=== PATIENT | female | born 1990 | race Caucasian/White ===

== ENCOUNTER 2016-04-30 23:51 | Emergency (ER) | payer OTHER ==
--- NOTE | 2016-05-01 01:07 | ERNOTE ---
Abdominal HPI - Narrative Date of Service: 05/01/16 - General Chief Complaint: Abdominal Pain Time Seen by Provider: 05/01/16 01:06 Source: patient Exam Limitations: no limitations - Immun/Allergies/Home Medications Immunizatons: IMMUNIZATION HX Immunizations Up to Date Yes History of Influenza Vaccine Yes Hx Pneumococcal Vaccination No Allergies/Adverse Reactions: Allergies No Known Allergies Allergy (Verified 10/16/15 19:03) Home Medications: HOME MEDICATIONS Naproxen [Naprosyn] 500 mg PO BID PRN #20 tablet 05/01/16 [Last Taken Unknown] - History of Present Illness Narrative: Yesterday Tran noticed the onset of right periumbilical pain, that is worse when she is sits up. The pain is sharp,does not radiate and is well localized. There has not been any N/V/D, fevers, chills, rashes, or vaginal discharge. Denies any pushing, pulling or other physical activity out of the ordinary. She has tried OTC medication for the pain without relief. Timing: intermittent Quality: moderate Activities at Onset: none Modifying Factors - (Improves): Present: lying down Modifying Factors - (Worsens): Present: sitting up, movement Associated Symptoms: Present: denies symptoms Prior Abdominal Problems: Present: none Review of Systems - Review of Systems Constitutional: Present: no symptoms reported EYE: Present: no symptoms reported ENT: Present: no symptoms reported Respiratory: Present: no symptoms reported Cardiology: Present: no symptoms reported Gastrointestinal/Abdominal: Present: See HPI Genitourinary: Present: no symptoms reported Musculoskeletal: Present: no symptoms reported Skin: Present: no symptoms reported Neurological: Present: no symptoms reported Endocrine: Present: no symptoms reported Hematologic/Lymphatic: Present: no symptoms reported Psych: Present: no symptoms reported - Patient's Past Medical History Patient History - Medical: Other Patient History - Cardiac/Respiratory: Other Patient History - Cancer: No Hx of Cancer Patient History - Surgical Procedures: Cholecystectomy, Ear Tubes, T & A Patient History - Other: None - Social History Living Situations: significant other Abuse History: No History of abuse Psych History: No pertinent hx Smoking Status: Never smoker Alcohol Use: rarely Drug Use: none - Immunizations Immunizations Up to Date: Yes Hx Pneumococcal Vaccination: No History of Influenza Vaccine: Yes Physical Exam - Physical Exam Narrative: morbidly obese General Appearance: Present: no apparent distress Eye Exam: Normal inspection: bilateral Ears, Nose, Throat: Present: normal ENT inspection Neck: Present: normal inspection Respiratory: Present: no respiratory distress Cardiovascular/Chest: Present: regular rate, rhythm Gastrointestinal/Abdominal: Present: other - point tenderness at ther right of the navel, where there may be a hernia in the abdominal wall. 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 Vital Signs: Vital Signs 05/01/16 00:42 Temperature 36.7 C Pulse Rate 81 Respiratory 16 Rate Blood Pressure 127/81 O2 Sat by Pulse 100 Oximetry - Progress/Reassessment Chief Complaint: Abdominal Pain Progress:: Unchanged Departure - Departure Clinical Impression: Abdominal wall pain Disposition: Against medical advice Condition: Good Instructions: Abdominal Pain, Adult, [id number] Print Language: [place] Additional Instructions: If the pain continues follow up with the surgeon. Referrals: Josh Putnam MD [Staff Physician] - Prescriptions: Naproxen [Naprosyn] 500 mg PO BID PRN #20 tablet PRN Reason: Pain
[2016-05-01 01:24] LABS: Urine Bilirubin Negative (NEGATIVE); Urine Blood Negative /ul (NEGATIVE); Urine Ketone Negative (NEGATIVE); Urine Nitrite Negative (NEGATIVE); Urine Protein Negative (NEGATIVE); Urine Specific Gravity >=1.030 SP.GR. (1.005-1.010); Urine Urobilinogen Normal (NORMAL)
[2016-05-01 01:29] LABS: Urine Amorphous Sediment Few - 1+ (NONE-FEW); Urine Appearance Slightly Cloudy; Urine Bacteria None Seen; Urine Color Yellow; Urine Mucus Few - 1+; Urine RBC 0-5 /hpf (0-5); Urine WBC 0-5 /hpf (0-5)
[2016-05-01 03:01] VITALS: BP 134/89
== END 2016-05-01 02:30 | disposition left against medical advice (07) ==
LOC: ER 23:51
DX: R10.9 Unspecified abdominal pain (principal); Z90.49 Acquired absence of other specified parts of digestive tract; E66.01 Morbid (severe) obesity due to excess calories

== ENCOUNTER 2016-12-28 18:43 | Emergency (ER) | payer SELFPAY ==
[2016-12-28 18:53] VITALS: BP 142/92
[2016-12-28] MEDS ORDERED: ONDANSETRON 4 MG TAB.RAPDIS PO ONE (19:04)
[2016-12-28] MEDS ORDERED: KETOROLAC TROMETHAMINE 60 MG/2 ML VIAL IM ONE ×2 (19:04→19:27)
--- NOTE | 2016-12-28 19:07 | ERNOTE ---
ER Female HPI Date of Service: 12/28/16 Stated Complaint: URINARY PROBLEM Presenting Symptoms: dysuria, other - R flank pain Time Seen by Provider: 12/28/16 18:55 Source: patient Exam Limitations: no limitations Immunizations: IMMUNIZATION HX Immunizations Up to Date Yes History of Influenza Vaccine No Hx Pneumococcal Vaccination No Allergies/Adverse Reactions: Allergies No Known Allergies Allergy (Verified 12/28/16 18:53) Home Medications: HOME MEDICATIONS Naproxen [Naprosyn] 500 mg PO BID PRN #60 tab 12/28/16 [Last Taken Unknown] Sulfamethoxazole/Trimethoprim [Bactrim Ds] 1 tab PO BID #28 tab 12/28/16 [Last Taken Unknown] - History of Present Illness Narrative: Pt. comes in with c/o R flank pain with nausea and vomiting for 24 hours. Pt. states that her symptoms are accompanied by dysuria, frequency, and urgency, but denies any fever, SOB, CP, diarrhea, alleviating factors, aggravating factors, or prehospital treatment. Review of Systems - Review of Systems Constitutional: Present: no symptoms reported. Absent: recent illness, fever, chills, weakness, fatigue, malaise EYE: Present: no symptoms reported ENT: Present: no symptoms reported Respiratory: Present: no symptoms reported. Absent: shortness of breath, cough , wheezing Cardiology: Present: no symptoms reported. Absent: chest pain, palpitations, edema Gastrointestinal/Abdominal: Present: nausea, vomiting, abdominal pain - suprapubic. Absent: diarrhea Genitourinary: Present: frequency, pain - R flank, dysuria Musculoskeletal: Present: back pain - R flank pain. Absent: joint pain Skin: Present: no symptoms reported. Absent: rash, change in color Neurological: Present: no symptoms reported. Absent: anxiety, headache, dizziness/light-headedness, numbness, tingling All Other Systems: All systems neg except as marked - Patient's Past Medical History Patient History - Medical: UTI'S Patient History - Cardiac/Respiratory: Other Patient History - Cancer: No Hx of Cancer Patient History - Surgical Procedures: Cholecystectomy, Ear Tubes, T & A Patient History - Other: None LMP (females 10-50): last week - Social History Living Situations: home Abuse History: No History of abuse Psych History: No pertinent hx Smoking Status: Never smoker Alcohol Use: rarely Drug Use: none - Immunizations Immunizations Up to Date: Yes Hx Pneumococcal Vaccination: No History of Influenza Vaccine: No Physical Exam - Physical Exam General Appearance: Present: wd/wn, alert, no apparent distress Head Exam: Present: normal inspection, no evidence of injury Eye Exam: Normal inspection: bilateral Respiratory: Present: no respiratory distress, normal breath sounds, no accessory muscle use, chest nontender, lungs clear Cardiovascular/Chest: Present: regular rate, rhythm, no murmur, normal peripheral pulses Gastrointestinal/Abdominal: Present: normal bowel sounds, nondistended, soft, no organomegaly, tenderness - suprapubic. Absent: rebound Back Exam: Present: normal range of motion, no vertebral tenderness, CVA tenderness (R) Extremity Exam: Present: normal inspection, non-tender, normal range of motion, no edema Neurological Exam: Present: alert, oriented, normal mood/affect, no motor/ sensory deficits Skin Exam: Present: normal color, warm/dry. Absent: pallor, skin rash ED Progress - Results and Orders Patient's Lab Results:: I have reviewed the patient's lab results. - Vital Signs Patient's Vital Signs:: I have reviewed the patient's vital signs. Vital Signs: Vital Signs 12/28/16 18:50 Temperature 36.7 C Pulse Rate 74 Respiratory 18 Rate Blood Pressure 142/92 O2 Sat by Pulse 98 Oximetry - CT/Ultrasound CT/Ultrasound Narrative: CT scan without any evidence of renal stone. - Progress/Reassessment Chief Complaint: Urinary Tract Problems Progress:: Improved Departure Clinical Impression: Pyelonephritis - Departure Disposition: Home self-care Condition: Good Instructions: Pyelonephritis, Adult, [id number] Additional Instructions: Please follow up with primary provider in 2-3 days. Prescriptions: Naproxen [Naprosyn] 500 mg PO BID PRN #60 tab PRN Reason: Pain Sulfamethoxazole/Trimethoprim [Bactrim Ds] 1 tab PO BID #28 tab
[2016-12-28 19:26] LABS: Urine Appearance Clear; Urine Color Yellow
[2016-12-28 19:27] LABS: Urine Bilirubin Negative (NEGATIVE); Urine Blood 250 /ul (NEGATIVE); Urine Ketone Negative (NEGATIVE); Urine Protein Negative (NEGATIVE); Urine Specific Gravity 1.025 SP.GR. (1.005-1.010); Urine pH 5.5 pH (5.0-7.0)
[2016-12-28] MEDS ORDERED: ONDANSETRON 4 MG TAB.RAPDIS ONE (19:27)
[2016-12-28 19:28] LABS: Urine Nitrite Negative (NEGATIVE); Urine Urobilinogen Normal (NORMAL)
[2016-12-28 19:32] LABS: Urine Bacteria 1+
[2016-12-28 20:01] LABS: Hematocrit 40.1 % (37.0-47.0); Hemoglobin 13.9 gm/dL (12.5-16.0); Mean Cell Volume 85.3 fl (78-100); Mean Corpuscular Hemoglobin 29.6 pg (27-31); Mean Corpuscular Hgb Conc 34.7 g/dl (32-36); Mean Platelet Volume 9.1 fl (6.0-9.5); Neutrophil # 5.1 K/mm3 (1.3-6.0); Neutrophil % 62.7 % (42-75.0); Platelet Count 304 K/mm3 (150-450); Red Cell Distribution Width 12.1 % (11.5-14.0); White Blood Count 8.2 K/mm3 (4.0-10.5)
[2016-12-28 20:15] LABS: Albumin * 4.1 gm/dl (3.4-5.0); Anion Gap 12.8 mmol/L (6.8-13.8); BUN/Creatinine Ratio 17.1 (9.0-21.6); Bilirubin, Total 0.7 mg/dL (0.0-1.1); Ca. Corrected For Albumin 8.6 mg/dL (8.4-10.2); Potassium 3.8 mmol/L (3.4-4.6); Total Protein 7.4 gm/dL (6.2-8.2)
[2016-12-28] MEDS ORDERED: SULFAMETHOXAZOLE/TRIMETHOPRIM 1 TAB TABLET PO ONE (21:19)
[2016-12-28] MEDS ORDERED: SULFAMETHOXAZOLE/TRIMETHOPRIM 1 TAB TABLET ONE ×2 (21:23→21:26)
== END 2016-12-28 21:30 | disposition home or self-care (01) ==
LOC: ER 18:43
DX: N12 Tubulo-interstitial nephritis, not specified as acute or chronic (principal); Z87.440 Personal history of urinary (tract) infections